=== PATIENT | female | born 2000 | race Caucasian/White ===

== ENCOUNTER 2024-08-17 13:30 | Observation (INO) | payer OTHER ==
[2024-08-17 13:56] VITALS: BMI 32.5
[2024-08-17] MEDS ORDERED: ACETAMINOPHEN INJECTION 100 ML ONE (14:16)
[2024-08-17] MEDS ORDERED: ONDANSETRON 4 MG/2 ML VIAL ONE (14:16)
[2024-08-17] MEDS: ONDANSETRON 4 MG/2 ML VIAL IVPUSH ONE (14:18)
[2024-08-17 14:19] LABS: ABSOLUTE IMMATURE GRANULOCYTES 0.01 x10^3/uL (0.0-0.031); BASOPHILS # 0.02 x10^3/uL (0.01-0.08); EOSINOPHIL % 0.4 % (0.7-5.8); EOSINOPHILS # 0.04 x10^3/uL (0.04-0.36); HEMATOCRIT 40.4 % (34.1-44.9); HEMOGLOBIN 13.5 g/dL (11.2-15.7); MCHC 33.4 g/dl (32.2-35.5); MEAN CELL VOLUME 80.3 fl (79.4-94.8); MEAN PLT VOLUME 10.7 fl (9.4-12.3); MONOCYTE # 0.73 x10^3/uL (0.24-0.86); MONOCYTE % 6.9 % (4.7-12.5); PLATELET COUNT 191 x10^3/uL (182-369); RDW 12.2 % (12.1-16.5)
[2024-08-17] MEDS: ACETAMINOPHEN 1000 MG/100 ML BAG IVPB ONE (14:21)
[2024-08-17 14:23] LABS: HCG,QUALITATIVE URINE Negative
[2024-08-17 14:29] LABS: PROTHROMBIN TIME (PATIENT) 11.1 SEC (9.7-13.0)
[2024-08-17 14:32] LABS: ACTIVATED PTT 31.3 SECONDS (25.2-36.5)
[2024-08-17 14:41] LABS: ALBUMIN 4.1 g/dl (3.4-5.0); BILIRUBIN,TOTAL 0.5 mg/dl (0.2-1); CALCIUM 8.9 mg/dl (8.5-10.1); CREATININE 0.7 mg/dl (0.6-1.3); MAGNESIUM 1.6 mg/dL (1.8-2.4); POTASSIUM 3.7 mmol/L (3.5-5.1); TOT PROT 7.1 g/dl (6.4-8.2)
[2024-08-17] MEDS: SODIUM CHLORIDE 0.9% 500 ML INFUS.BAG IV ONE (14:45)
[2024-08-17] MEDS ORDERED: PIPERACILLIN/TAZOBACTAM 4.5 GM VIAL IVPB ONE (16:22)
[2024-08-17] MEDS: PIPERACILLIN/TAZOB 4.5 GM 4.5 GM in DEXTROSE 5%-WATER 100 ML IVPB ONE (16:27)
[2024-08-17] MEDS ORDERED: ONDANSETRON 4 MG/2 ML VIAL IVPUSH PRN (17:16)
[2024-08-17] MEDS: DEXTROSE 5%-NORMAL SALINE 1,000 ML IV SCH (18:09)
[2024-08-17] MEDS: PIPERACILLIN/TAZOB 4.5 GM 4.5 GM in DEXTROSE 5%-WATER 100 ML IVPB SCH (21:33)
[2024-08-18] MEDS: MAGNESIUM 1GM/D5W 100ML - 100 ML IVPB IVPB ONE (09:37)
[2024-08-18] MEDS ORDERED: ONDANSETRON 4 MG/2 ML VIAL IVPUSH PRN (09:40)
[2024-08-18] MEDS: ACETAMINOPHEN 1000 MG/100 ML BAG IVPB PRN (11:29)
[2024-08-18] MEDS: KETOROLAC TROMETHAMINE 30 MG/1 ML VIAL IVPUSH PRN (12:23)
[2024-08-18] MEDS ORDERED: BUPIVACAINE HCL/PF 0.5% (5MG/ML) 10 ML VIAL ONE ×2 (15:12→16:07)
[2024-08-18] MEDS ORDERED: PROPOFOL 60 ML ONE (15:38)
[2024-08-18] MEDS ORDERED: SUCCINYLCHOLINE CHLORIDE 200 MG/10 ML SYRINGE ONE (15:38)
[2024-08-18] MEDS ORDERED: MIDAZOLAM HCL 2 MG/2 ML SINGLE DOSE VIAL ONE (15:39)
[2024-08-18] MEDS ORDERED: HYDROmorphone HCL/PF 1 MG/ML VIAL ONE (15:59)
[2024-08-18] MEDS: LACTATED RINGERS SOLUTION 1,000 ML IV SCH (18:50)
[2024-08-19] MEDS ORDERED: PIPERACILLIN/TAZOB 4.5 GM 4.5 GM in DEXTROSE 5%-WATER 100 ML IVPB SCH (03:00)
[2024-08-19 14:05] VITALS: BP 114/74; PULSE 68; RESP 19; TEMP 98.1
== END 2024-08-19 13:35 | disposition home or self-care (01) ==
LOC: FER 13:30 → FM/S 16:37 → INTOOBSV 16:37
PROVIDERS: ADMIT Internal Medicine; ATTEND Internal Medicine
PROC: 3E033NZ Introduction of Analgesics, Hypnotics, Sedatives into Peripheral Vein, Percutaneous Approach (ICD-10-PCS; 2024-08-17)
PROC: 3E0333Z Introduction of Anti-inflammatory into Peripheral Vein, Percutaneous Approach (ICD-10-PCS; 2024-08-17)
PROC: 3E0337Z Introduction of Electrolytic and Water Balance Substance into Peripheral Vein, Percutaneous Approach (ICD-10-PCS; 2024-08-17)
PROC: 0DTJ4ZZ Resection of Appendix, Percutaneous Endoscopic Approach (ICD-10-PCS; principal; 2024-08-18 16:08)
DX: K35.80 Unspecified acute appendicitis (principal); E66.9 Obesity, unspecified; Z79.85 Long-term (current) use of injectable non-insulin antidiabetic drugs; J45.909 Unspecified asthma, uncomplicated; D72.829 Elevated white blood cell count, unspecified
CPT/HCPCS: 36415; 74177-TC; 80053; 81003; 83735; 84703; 85025; 85610; 85730; 86140; 86850; 86900; 86901; 87086; 88304-TC; 94760; 99285-25; G0378; Q9967